=== PATIENT | male | born 1980 | race Caucasian/White ===

== ENCOUNTER 2021-03-12 11:01 | Observation (INO) | payer OTHER ==
[~2021-03-12] VITALS: Ht 177.8 cm; Wt 86.2 kg
--- NOTE | ~2021-03-12 | OP ---
[facility] [address] [place] [address] OPERATIVE REPORT Name: BRYON ARNOLD Room: [address] [place]#: [id number] Admission: 03/12/21 Attend Phys: George Fofana Discharge: Date of : 76 Report #: [id number] THIS REPORT FOR: cc: Carlos Alberto Keller MD, Bruce D. MD Patterson, Jonathan D. MD ~ DOC #: [id number] George Fofana MD DATE OF SURGERY: 03/12/2021 PREOPERATIVE DIAGNOSIS: Acute appendicitis. POSTOPERATIVE DIAGNOSIS: Acute appendicitis. OPERATION: Laparoscopic appendectomy. SURGEON: George Fofana MD. ANESTHESIA: General. ESTIMATED BLOOD LOSS: Minimal. SPECIMENS: Appendix. DESCRIPTION OF PROCEDURE: After informed consent was obtained, the patient was brought to the operating room and placed supine. SCDs were placed and working, preoperative antibiotics were administered, general anesthesia was induced. The abdomen was prepped and draped in the usual sterile fashion. A 10 mm incision was made below the umbilicus. Fascia was incised and a trocar was placed. Pneumoperitoneum was established. Right upper quadrant and left lower quadrant 5 mm trocars were placed under direct vision. The patient was placed with the left side slightly tilted down. The appendix was retrocecal. It was freed up from the lateral attachments using the LigaSure device. There was excellent hemostasis. The mesoappendix was ligated with the LigaSure. Again, there was good hemostasis. The base of the appendix was ligated using a PDS Endoloop. The appendix was cut and placed into an Endopouch and removed. The fascia was then closed with a mvuobn-tl-enyny 0 Vicryl. Skin was closed with 4-0 Monocryl. Incisions were dressed with Steri-Strips. COMPLICATIONS: None. DISPOSITION: The patient was taken to recovery in satisfactory condition. MD SHANT Moreau/[place] [address] OPERATIVE REPORT Name: BRYON ARNOLD Room: [address] [place]#: [id number] Admission: 03/12/21 Attend Phys: George Fofana Discharge: Date of : 76 Report #: [id number] By: [id number] Fofana MD /nt
[~2021-03-12 11:01] MED LIST: ALBUTEROL INHAL17 GM IH; AUGMENTIN 875875 M1 PO; BENADRYL25 MG PO; CLEOCIN HCL300 MG PO; PREDNISONE 20 M20 MG PO; TESSALON200 MG PO; ZANTAC 150MG T150 M1 PO; ZPAK PO
[2021-03-12 11:09] VITALS: BP 176/105
[2021-03-12] MEDS ORDERED: OTHER (11:13)
[2021-03-12 11:36] LABS: HEMATOCRIT 45.8 % (42.0-52.0); MCH 31.2 pg (26.0-34.0); MCV 89.1 fL (80.0-100.0); MPV 7.9 fl. (7.2-11.1); NUCLEATED RBCS 0 /100WBC; PLATELET COUNT* 213 thou/uL (150-400); RBC 5.14 mil/uL (4.50-6.00); RDW-CV 12.9 % (10.5-14.5); WBC 19.4 thou/uL (4.0-11.0)
[2021-03-12 11:46] LABS: CALCIUM 9.2 mg/dL (8.5-10.1); CREATININE 0.9 mg/dL (0.6-1.3)
[2021-03-12 11:50] LABS: ALBUMIN 4.4 g/dL (3.4-5.0); TOTAL PROTEIN 8.3 g/dL (6.4-8.2)
[2021-03-12 12:12] LABS: ABSOLUTE MONOCYTES 1.9 thou/uL (0.0-1.2); ABSOLUTE NEUTROPHILS 16.5 thou/uL (1.6-8.1); PLATELET ESTIMATE ADEQUATE
[2021-03-12 13:13] LABS: URINE BILIRUBIN NEGATIVE (Negative); URINE BLOOD NEGATIVE (Negative); URINE CLARITY CLEAR; URINE COLOR YELLOW; URINE GLUCOSE-RANDOM NEGATIVE (Negative); URINE KETONES NEGATIVE (Negative); URINE LEUKOCYTES NEGATIVE (Negative); URINE NITRITE NEGATIVE (Negative); URINE PROTEIN NEGATIVE (Negative); URINE UROBILINOGEN 0.2 E.U./dl (0.2-1.0)
[2021-03-12 14:05] VITALS: BP 172/94
[2021-03-12 17:15] VITALS: BP 139/82
[2021-03-12 18:29] VITALS: BP 139/82
[2021-03-12 19:42] VITALS: BP 139/82
--- NOTE | 2021-03-13 09:48 | EKG ---
[place] [address] ELECTROCARDIOGRAM REPORT Name: BRYON ARNOLD Room: [address]#: [id number] Admission: 03/12/21 Attend Phys: George Pena Discharge: 03/12/21 Date of : 76 Date of Service: 03/12/21 1137 Report #: [id number] THIS REPORT FOR: //name// [facility] ED Test Date: 2021-03-12 Test Time: 11:37:08 Pat Name: BRYON ARNOLD Department: Room: [facility] Gender: M Transportation Inspector: SUSSY : 1980 Requested By: Trudy Graham Order Number: [id number] MD: Jonny De La Cruz Measurements Intervals [place] Rate: 65 P: 36 DE: 173 QRS: 41 QRSD: 101 T: 37 QT: 402 QTc: 418 Interpretive Statements Sinus rhythm Probable left ventricular hypertrophy No previous ECG available for comparison Electronically Signed On 03-13-2021 9:48:04 CDT by Jonny De La Cruz [email or web address] <ELECTRONICALLY SIGNED> By: Jonny De La Cruz MD, [facility] 03/13/21 0948 1137 1137 Jonny De La Cruz MD, [facility] /EPI
== END 2021-03-12 19:10 | disposition home or self-care (01) ==
LOC: M.ERS 11:01 → M.TBA-ER 13:23 → M.ORTHSURG 16:49
PROVIDERS: Nurse Practitioner Family; ADMIT Surgery; ATTEND Surgery
DX: K35.80 Unspecified acute appendicitis (principal); Z20.822 Contact with and (suspected) exposure to COVID-19; F17.200 Nicotine dependence, unspecified, uncomplicated; Z79.899 Other long term (current) drug therapy; Z86.73 Personal history of transient ischemic attack (TIA), and cerebral infarction without residual deficits